=== PATIENT | female | born 1985 | race Two or more races ===

== ENCOUNTER 2021-09-08 10:33 | Emergency (ER) | payer OTHER ==
[~2021-09-08] VITALS: Ht 157.5 cm; Wt 59.0 kg
[2021-09-08] MEDS ORDERED: HUMALOG100 UNIT/1 (10:42)
[2021-09-08] MEDS ORDERED: LANTUS SOL100 UNIT/1 (10:42)
== END 2021-09-08 14:59 | disposition home or self-care (01) ==
LOC: ER 10:33
DX: R55 Syncope and collapse (principal); E10.9 Type 1 diabetes mellitus without complications; Z79.4 Long term (current) use of insulin